=== PATIENT | female | born 1950 | race Caucasian/White ===

== ENCOUNTER → 2020-12-03 | Outpatient (CLI) | payer OTHER ==
--- NOTE | 2020-12-07 01:54 | ECWPNPC ---
PATIENT NAME: RAFAL MC : 1950 GENDER: FEMALE VISIT DATE: 12/03/2020 DISCHARGE DATE: 12/03/20 1357 VISIT LOCKED DATE TIME: PHYSICIAN: PASCUAL GARCIA RESOURCE: PASCUAL GARCIA REASON FOR APPOINTMENT 1. CERVICALGIA HISTORY OF PRESENT ILLNESS GENERAL: 70-YEAR-OLD FEMALE IN FOR INITIAL PAIN CONSULT REGARDING NECK PAIN. 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 AT THAT TIME SHE WAS AT A STOP SIGN AND WAS REAR-ENDED AND SINCE THEN SHE HAS EXPERIENCED NECK PAIN. PATIENT HAS TRIED INJECTIONS IN THE PAST TO NO AVAIL. SHE DOES ADMIT TO BEING ON TRAMADOL IN THE PAST AND STATES THAT IT MADE HER SLEEP TOO DEEPLY. SHE RATES HER PAIN CURRENTLY AT A 9 OUT OF 10 AND DESCRIBES IT A CONTINUOUS PRESSURE. FALL RISK SCREENING: SCREENING : ONE FALL IN THE LAST YEAR, PATIENT DENIES SEEKING MEDICAL INTERVENTION.. PAIN SCREENING: PATIENT HAS A COMPLAINT OF ACUTE OR CHRONIC PAIN :YES LOCATION OF PAIN: NECK, HEAD, LEFT EYE. INTENSITY OF PAIN (SCALE OF 1 TO 10):9 WHAT DOES YOUR PAIN FEEL LIKE:CONTINOUS PRESSURE AND FEELING LIKE PAIN IS RADIATING INTO HEAD. PATIENT RELATES FEELING LIKE TOP OF HEAD WANTS TO BLOW OFF. DURATION:CONTINOUS, CONSTANT, AWAKENS FROM SLEEP PAIN IS INCREASED BY:OTHERS "OVERTIRED." PAIN IS DECREASED BY:USE OF PAIN MEDICATIONS PLAN/GOALS/TREATMENT/INTERVENTION/FOLLOW UP:SEE PLAN NURSING NOTE: -. PAIN CENTER INTAKE QUESTIONS: DO YOU HAVE A HISTORY OF MRSA? :NO DO YOU TAKE A BLOOD THINNERS? :NO DO YOU HAVE ANY BLEEDING DISORDERS? :NO ANY NEW NUMBNESS OR WEAKNESS IN YOUR LEGS OR ARMS? :NO ANY PACEMAKER,DEFIBRILLATOR, OR DORSAL COLUMN STIMULATOR? :NO DO YOU HAVE ANY RASHES OR OPEN SORES? :NO ARE YOU ALLERGIC TO IV DYE? :NO ARE YOU DIABETIC? :YES ANY NEW PROBLEMS WITH YOUR MEDICATIONS? :NO HAVE YOU RECEIVED A VACCINE IN THE PAST 30 DAYS? :NO DO YOU PLAN TO RECEIVE A VACCINE IN THE NEXT 21 DAYS? :NO DO YOU NEED ANY PRESCRIPTION? :NO DO YOU TAKE ANY IMMUNOSUPPRESSIVE MEDICATIONS? :NO DO YOU HAVE ANY KIDNEY OR LIVER DISEASE? :NO IS THERE A CHANCE YOU COULD BE ? :NO ARE YOU BREAST FEEDING? :NO CURRENT MEDICATIONS TAKING LIDOCAINE 5 % OINTMENT 1 APPLICATION NEEDED EXTERNALLY THREE TIMES A DAY TAKING BENEFIBER - POWDER DIRECTED ORALLY TAKING LIDOCAINE 5 % CREAM DIRECTED EXTERNALLY TWICE DAILY NEEDED TAKING REFRESH 1.4-0.6 % SOLUTION DIRECTED OPHTHALMIC TAKING MAY USE OPTICALLY OPTIVE JOSE C-3 0.5-1.0.5% SOLUTION DORECTED TAKING JOSE C BASIC 1-2 DROPS IN EACH EYE NEEDED OPTHALMIC TAKING SUMATRIPTAN SUCCINATE 6 MG/0.5ML SOLUTION 0.5 ML MAY REPEAT DOSE AFTER 1 HOUR NEEDED SUBCUTANEOUS ONSET OF MIGRAINE, REPEAT 2 HOURS LATER TAKING MAXALT 10 MG TABLET 1 TABLET ORALLY ONCE A DAY PRN TAKING LYRICA 200 MG CAPSULE 1 CAP ORALLY THREE TIMES DAILY TAKING LOSARTAN POTASSIUM 50 MG TABLET ONE HALF TAB ORALLY ONCE A DAY TAKING ATORVASTATIN CALCIUM 10 MG TABLET 1 TABLET ORALLY ONCE A DAY TAKING CELEBREX 200 MG CAPSULE 1 CAPSULE WITH FOOD ORALLY ONCE A DAY TAKING CRANBERRY SUPER STRENGTH 6000-100-3 MG-MG-UNIT CAPSULE DIRECTED ORALLY TAKING SUCRALFATE 1 GM TABLET 1 TABLET ON AN EMPTY STOMACH ORALLY TWICE A DAY TAKING METFORMIN HCL 500 MG TABLET 1 TABLET WITH A MEAL ORALLY BID TAKING JANUVIA 100 MG TABLET 1 TABLET ORALLY ONCE A DAY TAKING GLIPIZIDE XL 5 MG TABLET EXTENDED RELEASE 24 HOUR 1 TABLET WITH FOOD ORALLY BID TAKING VITAMIN D3 COMPLETE - TABLET 1 TAB ORALLY 5000 UNITS TAKING HYDROXYCHLOROQUINE SULFATE 200 MG TABLET DIRECTED ORALLY BID TAKING SYNTHROID 50 MCG TABLET 1 TABLET IN THE MORNING ON AN EMPTY STOMACH ORALLY ONCE A DAY TAKING PROLIA 60MG/ML SUBCUTANEOUSLY EVERY 6 MONTHS TAKING OMEPRAZOLE 20 MG CAPSULE DELAYED RELEASE 1 CAP ORALLY BID TAKING PENTASA 500 MG CAPSULE EXTENDED RELEASE 2 CAPSULES ORALLY TID TAKING FERROUS GLUCONATE 324 (38 FE) MG TABLET 1 TABLET WITH WATER OR JUICE BETWEEN MEALS ORALLY ONCE A DAY TAKING DICLO GEL MEDICATION LIST REVIEWED AND RECONCILED WITH THE PATIENT PAST MEDICAL HISTORY TYPE 2 DIABETES CHROHNS HYPERTENSION HYPOTHYROIDISM GERD MIGRAINES HIGH CHOLESTEROL ALLERGIES HYALGAN: RASH, ABD PAIN, FATIGUE - ALLERGY DIAMOX SEQUELS: INCREASED BLOOD SUGARS - SIDE EFFECTS RESTASIS: EYES RED, SORE, COULDN'T SEE - SIDE EFFECTS DARVON: HYPER, TOUNGE BLACK - SIDE EFFECTS RECLAST: HIGH BLOOD PRESSURE, BLOOD SUGARS WAY UP, PACREATITIS - SIDE EFFECTS KEFLEX: SUGARS WAY DOWN - SIDE EFFECTS ZANAFLEX: DECREASED HEART RATE, LOW BP, SLURRED SPEECH, FATIGUE - SIDE EFFECTS VICTOZA: RASH, WELTS, NAUSEA - ALLERGY EFFNOX: SUGARS DOWN, - SIDE EFFECTS RELPAN: NAUSEA/VOMITING - ALLERGY DOXYCYCLINE: HYPOGLYCEMIA - ALLERGY PUNCTAL PLUGS : INFECTION - SIDE EFFECTS SURGICAL HISTORY FULL HYSTERECTOMY 1989 LASER RIGHT EYE SURGERY GALL BLADDER REMOVAL 1991 SEVERAL COLONOSCOPIES CYST REMOVED FROM OVARIES 2 LIVER BIOPSIES RIGHT CATARACT SURGERY 2006, 2008 ENDOSCOPY X 3 TRIGGER FINGER RIGHT BASAL THUMB JOINT ARHROPLASTY 07/03/2016 COLONOSCOPY BENJI 2014 SPINAL TUMOR REMOVED 10/09/2017 COLONOSCOPY & EGD [facility] 02/26/2018 SOCIAL HISTORY GENERAL: TOBACCO USE ARE YOU A:NONSMOKER LATEX QUESTIONNAIRE LATEX ALLERGY : HAVE YOU EVER DEVELOPED ANY TYPE OF REACTION AFTER HANDLING LATEX PRODUCTS SUCH RUBBER GLOVES, CONDOMS, DIAPHRAGMS, BALLOONS, SOCKS, OR UNDERWEAR?NO LATEX ALLERGY : HAVE YOU EVER DEVELOPED ANY TYPE OF REACTION DURING OR AFTER DENTAL APPOINTMENT, VAGINAL/RECTAL EXAMINATION, SURGICAL PROCEDURE, OR ANY OTHER EXPOSURE?NO LATEX RISK : HAVE YOU EVER HAD ANY DIFFICULTY BREATHING OR HIVES AFTER EATING OR HANDLING ANY FRUITS, OR VEGETABLES; SUCH KIWI, BANANAS, STONE FRUITS, OR CHESTNUTSNO LATEX RISK : DO YOU HAVE A PREVIOUS PERSONAL HISTORY OF MORE THAN NINE SURGERIES, SPINA BIFIDA, OR REPEATED CATHERIZATIONS? YES LATEX RISK : ARE YOU FREQUENTLY EXPOSED TO LATEX PRODUCTS IN YOUR OCCUPATION?NO DATE ASKED : 12/03/2020 ALCOHOL USE: TARANMOISÉS 12/03/2020 1:10:34 PM > , NO. RECREATIONAL DRUG USE DRUG USE?NO JEWISH [id number] PRESBYTERIAN NO HINDU BELIEFS THAT WOULD IMPACT HEALTH CARE. LEARNING BARRIERS / SPECIAL NEEDS BARRIERS TO LEARNING?NO HEARING IMPAIRED?YES :HEARING AIDES VISION IMPAIRED?YES :CORRECTIVE LENSES COGNITIVELY IMPAIRED?NO READINESS TO LEARN?YES LEARNING PREFERENCES?NO LEARNING CAPABILITIES PRESENT?YES EMOTIONAL BARRIERS?NO SPECIAL DEVICES?NO ELECTRIC ARC WELDER NEEDED?NO MARITAL STATUS: . HOSPITALIZATION/MAJOR DIAGNOSTIC PROCEDURE PNEUMONIA- 4 BROKEN RIBS RIGHT SIDE 05/2018 CHILDBIRTH BLOOD POISIONING SICK 10/2017 REVIEW OF SYSTEMS CONSTITUTIONAL: ANY RECENT FEVER NO . CHILLS NO . WEIGHT CHANGE OF UNKNOWN REASONS NO . GASTROENTEROLOGY: NEW UNEXPLAINABLE CHANGES IN BOWEL CONTROL NO . CONSTIPATION NO . GENITOURINARY: ANY NEW CHANGE IN BLADDER CONTROL? NO . NEUROLOGY: NEW ONSET DIZZINESS OR NEUROLOGICAL CHANGES NOT MENTIONED NO . NEW NUMBNESS OR PAIN PATTERNS NOT MENTIONED AND PERTINENT TO TODAY'S VISIT NO . CARDIOLOGY: NEW CHEST PRESSURE NO . PATIENT DENIES NO . RESPIRATORY: UNEXPLAINABLE COUGH NO . NEW SHORTNESS OF BREATH NO . VITAL SIGNS WT 135 LBS, HT 51 IN, BMI 36.49 INDEX, BP 159/74 MM HG, HR 65 /MIN, RR 18 /MIN, TEMP 97.6 F, OXYGEN SAT % 99%, SAFE IN ENV? (Y/N) YES, NA INITIALS SC 13:00, REVIEWED BY: Charli CHIRINOS BEST WORKER. EXAMINATION GENERAL EXAMINATION: GENERALNO ACUTE DISTRESS, WELL NOURISHED AND HYDRATED. PSYCHAPPROPRIATE MOOD AND AFFECT . LUNGS:CLEAR TO AUSCULTATION BILATERALLY, NO WHEEZES, RHONCHI, RALES. HEART:NO MURMURS, REGULAR RATE AND RHYTHM. ASSESSMENTS MYALGIA, OTHER SITE - M79.18 (PRIMARY) TREATMENT MYALGIA, OTHER SITE NOTES: 70-YEAR-OLD FEMALE IN FOR INITIAL PAIN CONSULT REGARDING A WORK RELATED INCIDENT. GIVEN PRESENTING SYMPTOMS AND RESULTS OF PHYSICAL EXAMINATION RECOMMENDED BILATERAL NECK TRIGGER POINT INJECTIONS WITH POSTPROCEDURAL FOLLOW-UP. PATIENT HAS EXPRESSED UNDERSTANDING OF AND WAS IN AGREEMENT WITH TREATMENT PLAN. GIVEN TIME TO ASK QUESTIONS AND EXPRESS CONCERNS. PROCEDURES PN WORKMANS' COMP OPINION IN YOUR OPINION, WAS THE INCIDENT THAT THE PATIENT DESCRIBED THE COMPETENT MEDICAL CAUSE OF THIS INJURY/ILLNESS? YES ARE THE PATIENT'S COMPLAINTS CONSISTENT WITH HIS/HER HISTORY OF THE INJURY/ILLNESS? YES IS THE PATIENT'S HISTORY OF THE INJURY/ILLNESS CONSISTENT WITH YOUR OBJECTIVE FINDING? YES WHAT IS THE PERCENTAGE OF TEMPORARY IMPAIRMENT? MODERATE TO MARKED = 66.7% IS THE PATIENT WORKING? YES DOCTOR ON SITE: ROXIE LEO MD PROCEDURE CODES FA211 ESTABILISHED PATIENT [facility] FAC[facility] CHARGE DISPOSITION & COMMUNICATION FOLLOW UP POSTPROCEDURE (REASON: TRIGGER POINT INJECTIONS BILATERAL NECK) ELECTRONICALLY SIGNED BY LEX DE LEÓN ON 12/06/2020 AT 08:32 AM EDT DISCLAIMER : THIS IS A VISIT SUMMARY EXTRACTED FROM THE [employer] CHART. IT IS NOT A COPY OF THE [employer] PROGRESS NOTE. ELIZABET
== END ==
LOC: M PAIN 13:00
PROVIDERS: ATTEND Family Medicine
DX: M79.18 Myalgia, other site (principal); E11.9 Type 2 diabetes mellitus without complications; K50.90 Crohn's disease, unspecified, without complications; I10 Essential (primary) hypertension; E03.9 Hypothyroidism, unspecified; K21.9 Gastro-esophageal reflux disease without esophagitis; G43.909 Migraine, unspecified, not intractable, without status migrainosus; E78.00 Pure hypercholesterolemia, unspecified; Z79.84 Long term (current) use of oral hypoglycemic drugs; Z79.899 Other long term (current) drug therapy; Z88.8 Allergy status to other drugs, medicaments and biological substances; Z88.1 Allergy status to other antibiotic agents

== ENCOUNTER → 2021-02-01 | Outpatient (CLI) | payer OTHER ==
[~2021-02-01] MED LIST: BUPIVACAINE HCL 0.25% 10ML VIAL As Ordered ONE; BUPIVACAINE HCL 0.25% 30ML VIAL As Ordered ONE; NORCO, ANEXSIA 5/325MG TABLET (HYDROcodone/ACETAMINOPHEN) As Ordered ONE; TRIAMCINOLONE ACETONIDE SUSP 40 MG/ML VIAL (J3301) As Ordered ONE; diazePAM 2 MG TAB As Ordered ONE
--- NOTE | 2021-02-04 01:21 | ECWPNPC ---
PATIENT NAME: RAFAL MC : 1950 GENDER: FEMALE VISIT DATE: 02/01/2021 DISCHARGE DATE: 02/01/21 161 VISIT LOCKED DATE TIME: PHYSICIAN: ROXIE NIXON MD RESOURCE: ROXIE NIXON MD REASON FOR APPOINTMENT 1. TRIGGER POINT INJECTIONS BILATERAL NECK HISTORY OF PRESENT ILLNESS GENERAL: -. FALL RISK SCREENING: SCREENING : ONE FALL IN THE LAST YEAR, PATIENT DENIES SEEKING MEDICAL INTERVENTION.. PAIN SCREENING: PATIENT HAS A COMPLAINT OF ACUTE OR CHRONIC PAIN :YES LOCATION OF PAIN:NECK, RIGHT SHOULDER INTENSITY OF PAIN (SCALE OF 1 TO 10):10 WHAT DOES YOUR PAIN FEEL LIKE:ACHING, SHOOTING, OTHER "RAWR, RAWR, ACHE IT JUST DONT STOP" DURATION:CONTINOUS, CONSTANT, AWAKENS FROM SLEEP PAIN IS INCREASED BY:ACTIVITIES PAIN IS DECREASED BY:USE OF PAIN MEDICATIONS PLAN/GOALS/TREATMENT/INTERVENTION/FOLLOW UP:SEE PLAN NURSING NOTE: -. PAIN CENTER INTAKE QUESTIONS: DO YOU HAVE A HISTORY OF MRSA? :NO DO YOU TAKE A BLOOD THINNERS? :NO DO YOU HAVE ANY BLEEDING DISORDERS? :NO ANY NEW NUMBNESS OR WEAKNESS IN YOUR LEGS OR ARMS? :YES CHRONIC RIGHT ARM WEAKNESS. ANY PACEMAKER,DEFIBRILLATOR, OR DORSAL COLUMN STIMULATOR? :NO DO YOU HAVE ANY RASHES OR OPEN SORES? :NO ARE YOU ALLERGIC TO IV DYE? :NO ARE YOU DIABETIC? :YES FSBS: 158 (THIS AM) ANY NEW PROBLEMS WITH YOUR MEDICATIONS? :NO HAVE YOU RECEIVED A VACCINE IN THE PAST 30 DAYS? :NO DO YOU PLAN TO RECEIVE A VACCINE IN THE NEXT 21 DAYS? :NO DO YOU TAKE ANY IMMUNOSUPPRESSIVE MEDICATIONS? :NO ANY HISTORY OF SEIZURES? :NO ANY HISTORY OF CARDIAC ISSUES OR EVENTS? :YES HEART MURMUR DO YOU HAVE ANY KIDNEY OR LIVER DISEASE? :NO DO YOU HAVE SLEEP APNEA? :NO ANY RECENT HEAD INJURY? :NO DO YOU HAVE ANY NEW INFECTIONS? :NO IS THERE A CHANCE YOU COULD BE ? :NO ARE YOU BREAST FEEDING? :NO WHEN DID YOU LAST EAT? : 02/01/21 0800 WHEN DID YOU LAST DRINK? : 02/01/21 1130 WHAT DID YOU LAST DRINK? : WATER NAME OF PERSON DRIVING YOU HOME? : SUHAS DO YOU HAVE ANY OTHER QUESTIONS OR CONCERNS? : NO CURRENT MEDICATIONS TAKING LIDOCAINE 5 % OINTMENT 1 APPLICATION NEEDED EXTERNALLY THREE TIMES A DAY, NOTES: NOT RECENTLY TAKING BENEFIBER - POWDER DIRECTED ORALLY TAKING LIDOCAINE 5 % CREAM DIRECTED EXTERNALLY TWICE DAILY NEEDED, NOTES: NOT RECENTLY TAKING REFRESH 1.4-0.6 % SOLUTION DIRECTED OPHTHALMIC TAKING MAY USE OPTICALLY OPTIVE JOSE C-3 0.5-1.0.5% SOLUTION DORECTED TAKING JOSE C BASIC 1-2 DROPS IN EACH EYE NEEDED OPTHALMIC TAKING SUMATRIPTAN SUCCINATE 6 MG/0.5ML SOLUTION 0.5 ML MAY REPEAT DOSE AFTER 1 HOUR NEEDED SUBCUTANEOUS ONSET OF MIGRAINE, REPEAT 2 HOURS LATER, NOTES: ISSUE WITH INSURANCE COMPANY TAKING MAXALT 10 MG TABLET 1 TABLET ORALLY ONCE A DAY PRN, NOTES: ISSUE WITH INSURANCE COMPANY TAKING LYRICA 200 MG CAPSULE 1 CAP ORALLY THREE TIMES DAILY, NOTES: 02/01/21 AM TAKING LOSARTAN POTASSIUM 50 MG TABLET ONE HALF TAB ORALLY ONCE A DAY, NOTES: 01/31 TAKING ATORVASTATIN CALCIUM 10 MG TABLET 1 TABLET ORALLY ONCE A DAY, NOTES: 01/31 TAKING CELEBREX 200 MG CAPSULE 1 CAPSULE WITH FOOD ORALLY ONCE A DAY, NOTES: 01/31 DINNER TAKING CRANBERRY SUPER STRENGTH 6000-100-3 MG-MG-UNIT CAPSULE DIRECTED ORALLY TAKING SUCRALFATE 1 GM TABLET 1 TABLET ON AN EMPTY STOMACH ORALLY TWICE A DAY TAKING METFORMIN HCL 500 MG TABLET 1 TABLET WITH A MEAL ORALLY BID, NOTES: 02/01/21 AM TAKING JANUVIA 100 MG TABLET 1 TABLET ORALLY ONCE A DAY, NOTES: 01/31 NOON TAKING GLIPIZIDE XL 5 MG TABLET EXTENDED RELEASE 24 HOUR 1 TABLET WITH FOOD ORALLY BID, NOTES: 02/01/21 AM TAKING VITAMIN D3 COMPLETE - TABLET 1 TAB ORALLY 5000 UNITS TAKING HYDROXYCHLOROQUINE SULFATE 200 MG TABLET DIRECTED ORALLY BID, NOTES: 01/31 TAKING SYNTHROID 50 MCG TABLET 1 TABLET IN THE MORNING ON AN EMPTY STOMACH ORALLY ONCE A DAY TAKING PROLIA 60MG/ML SUBCUTANEOUSLY EVERY 6 MONTHS, NOTES: 10/2020 TAKING OMEPRAZOLE 20 MG CAPSULE DELAYED RELEASE 1 CAP ORALLY BID TAKING PENTASA 500 MG CAPSULE EXTENDED RELEASE 2 CAPSULES ORALLY TID, NOTES: 02/01 AM TAKING FERROUS GLUCONATE 324 (38 FE) MG TABLET 1 TABLET WITH WATER OR JUICE BETWEEN MEALS ORALLY ONCE A DAY TAKING DICLO GEL , NOTES: 01/31 MEDICATION LIST REVIEWED AND RECONCILED WITH THE PATIENT PAST MEDICAL HISTORY TYPE 2 DIABETES CHROHNS HYPERTENSION HYPOTHYROIDISM GERD MIGRAINES HIGH CHOLESTEROL ALLERGIES HYALGAN: RASH, ABD PAIN, FATIGUE - ALLERGY DIAMOX SEQUELS: INCREASED BLOOD SUGARS - SIDE EFFECTS RESTASIS: EYES RED, SORE, COULDN'T SEE - SIDE EFFECTS DARVON: HYPER, TOUNGE BLACK - SIDE EFFECTS RECLAST: HIGH BLOOD PRESSURE, BLOOD SUGARS WAY UP, PACREATITIS - SIDE EFFECTS KEFLEX: SUGARS WAY DOWN - SIDE EFFECTS ZANAFLEX: DECREASED HEART RATE, LOW BP, SLURRED SPEECH, FATIGUE - SIDE EFFECTS VICTOZA: RASH, WELTS, NAUSEA - ALLERGY EFFNOX: SUGARS DOWN, - SIDE EFFECTS RELPAN: NAUSEA/VOMITING - ALLERGY DOXYCYCLINE: HYPOGLYCEMIA - ALLERGY PUNCTAL PLUGS : INFECTION - SIDE EFFECTS SOCIAL HISTORY GENERAL: TOBACCO USE ARE YOU A:NONSMOKER LATEX QUESTIONNAIRE LATEX ALLERGY : HAVE YOU EVER DEVELOPED ANY TYPE OF REACTION AFTER HANDLING LATEX PRODUCTS SUCH RUBBER GLOVES, CONDOMS, DIAPHRAGMS, BALLOONS, SOCKS, OR UNDERWEAR?NO LATEX ALLERGY : HAVE YOU EVER DEVELOPED ANY TYPE OF REACTION DURING OR AFTER DENTAL APPOINTMENT, VAGINAL/RECTAL EXAMINATION, SURGICAL PROCEDURE, OR ANY OTHER EXPOSURE?NO LATEX RISK : HAVE YOU EVER HAD ANY DIFFICULTY BREATHING OR HIVES AFTER EATING OR HANDLING ANY FRUITS, OR VEGETABLES; SUCH KIWI, BANANAS, STONE FRUITS, OR CHESTNUTSNO LATEX RISK : DO YOU HAVE A PREVIOUS PERSONAL HISTORY OF MORE THAN NINE SURGERIES, SPINA BIFIDA, OR REPEATED CATHERIZATIONS? YES - PLEASE INDICATE : > 9 SURGERIES LATEX RISK : ARE YOU FREQUENTLY EXPOSED TO LATEX PRODUCTS IN YOUR OCCUPATION?NO DATE ASKED : 02/01/2021 ALCOHOL USE: MOISÉS CHIRINOS 12/03/2020 1:10:34 PM > , NO. RECREATIONAL DRUG USE DRUG USE?NO CONFUCIANIST [id number] PRESBYTERIAN NO RESTORATIONISM BELIEFS THAT WOULD IMPACT HEALTH CARE. LEARNING BARRIERS / SPECIAL NEEDS BARRIERS TO LEARNING?NO HEARING IMPAIRED?YES VISION IMPAIRED?YES COGNITIVELY IMPAIRED?NO :HEARING AIDES :CORRECTIVE LENSES READINESS TO LEARN?YES LEARNING PREFERENCES?NO LEARNING CAPABILITIES PRESENT?YES EMOTIONAL BARRIERS?NO SPECIAL DEVICES?NO RN TRANSITIONAL CARE NEEDED?NO MARITAL STATUS: . VITAL SIGNS WT 135.2 LBS, HT 51 IN, BMI 36.54 INDEX, BP 181/86 MM HG, REPEAT BP 190/88 MM HG, HR 61 /MIN, RR 18 /MIN, TEMP 98.4 F, OXYGEN SAT % 100%, SAFE IN ENV? (Y/N) YES, NA INITIALS ID [id number], REVIEWED BY: AMPARO RN, BP SITTING 158/74RN IS GIONG TO RECHECK MANUAL. EXAMINATION GENERAL EXAMINATION: THE PATIENT IS ALERT, ORIENTED TIMES THREE AND COOPERATIVE. LUNGS ARE CLEAR TO AUSCULTATION. HEART SHOWS REGULAR RHYTHM, NO MURMURS AND NO GALLOPS. ASSESSMENTS MYALGIA - M79.10 (PRIMARY) TREATMENT MYALGIA MEDICATION: VALIUM TAB 2MG ORALLY (DIAZEPAM)URI FELICIANO 02/01/2021 2:52:05 PM > VERIFIED KEKE JONES 02/01/2021 2:55:35 PM > ADMINISTERED COMPLETION OF PROCEDURAL VISIT WHEN MEETS CRITERIA MED: PAIN NORCO TABLET 5MG/325MG ORALLY HYDROCODONE/ACETAMINOPHENURI FELICIANO 02/01/2021 2:52:17 PM > VERIFIED KEKE JONES 02/01/2021 2:56:03 PM > ADMINISTERED PROCEDURES PAIN NURSING RECORD PROCEDURE IN ROOM 1409, PHYSICIAN IN ROOM 1558, START 1601, FINISH 1604, PHYSICIAN OUT OF ROOM 1605, OUT OF ROOM 1614, ECG N/A, PATIENT SHIELDED N/A, SAFETY STRAP N/A, PREP ALCOHOL DR. NIXON, DRESSING TEGADERM Charli JONES RN LOC: 1. ALERT, ORIENTED RESP: 1. REGULAR, NO DYSPNEA COLOR: 1. PINK SKIN: 1. WARM, DRY POSITION: 5. SITTING VITALS: KEKE JONES 02/01/2021 4:10:20 PM > 160/90 HR 62 16 95% R/A COMPLETION OF PROCEDURE APPOINTMENT: POST PAIN 6, DRESSING SITE DRY AND INTACT, IV N/A, GAIT STEADY, TEACHING COMPLETED, PATIENT ACKNOWLEDGES UNDERSTANDING YES, PROCEDURE APPOINTMENT COMPLETED AT 1614 PN WORKMANS' COMP OPINION IN YOUR OPINION, WAS THE INCIDENT THAT THE PATIENT DESCRIBED THE COMPETENT MEDICAL CAUSE OF THIS INJURY/ILLNESS? YES ARE THE PATIENT'S COMPLAINTS CONSISTENT WITH HIS/HER HISTORY OF THE INJURY/ILLNESS? YES IS THE PATIENT'S HISTORY OF THE INJURY/ILLNESS CONSISTENT WITH YOUR OBJECTIVE FINDING? YES WHAT IS THE PERCENTAGE OF TEMPORARY IMPAIRMENT? MODERATE TO MARKED = 66.7% IS THE PATIENT WORKING? NO DOCTOR ON SITE: ROXIE LEO MD PN TRIGGER POINT INJECTION WITH STEROIDS PRE PROCEDURE DIAGNOSIS 1. MYALGIA 2. PAIN AT BILATERAL NECK AREA POST PROCEDURE DIAGNOSIS 1. MYALGIA 2. PAIN AT BILATERAL NECK AREA PROCEDURE TRIGGER POINT INJECTION AT BILATERAL NECK AREA SURGEON DR. ROXIE NIXON COURT ASSISTANT NONE ANESTHESIA LOCAL PRE PROCEDURE NOTE THE PATIENT HAS A HISTORY OF CHRONIC PAIN AT THE RIGHT AND LEFT NECK AREA. I EVALUATED THE PATIENT AND REVIEWED THE CHART. THERE IS EVIDENCE OF BANDS OF TISSUE WITH RESTRICTION OF MOVEMENT AND PRESENCE OF TRIGGER POINT AT THE RIGHT AND LEFT NECK AREA. I WENT OVER THE RISKS, ALTERNATIVES, AND BENEFITS ASSOCIATED WITH THIS PROCEDURE. THE PATIENT WOULD LIKE TO PROCEED AND GIVE CONSENT TO PERFORMED THE PROCEDURE. THE PATIENT DENIES UNEXPLAINABLE WEIGHT LOSS, FEVER, CHILLS, OR NEW CHANGES IN URINARY OR BOWEL CONTROL. THE PATIENT IS COVID-19 NEGATIVE DESCRIPTION OF PROCEDURE THE PATIENT WAS BROUGHT TO THE PROCEDURE ROOM AND PLACED IN THE SITTING POSITION. THE AREA WAS CLEANED WITH ALCOHOL. THE PROCEDURE WAS DONE USING ASEPTIC STERILE TECHNIQUE. A TIMEOUT WAS PERFORMED WHERE THE CONSENTED SITE WAS VERIFIED WITH EVERYONE IN THE ROOM. USING A 25-GAUGE NEEDLE, TRIGGER POINTS WERE INJECTED AT THE RIGHT AND LEFT NECK AREA WITH A TOTAL OF 40 ML OF BUPIVACAINE 0.25% AND KENALOG 40 MG. THE MEDICATIONS WERE VERIFIED WITH THE NURSE. THERE WAS NO EVIDENCE OF BLOOD OR PARESTHESIA DURING THE PROCEDURE. THE PATIENT WAS SENT TO THE RECOVERY ROOM. THE PATIENT WAS MOVING THE EXTREMITIES AND DOING WELL. THERE WERE NO COMPLICATIONS DURING THE PROCEDURE. ESTIMATED BLOOD LOSS WAS LESS THAN 5 ML POST PROCEDURE NOTE THE PATIENT IS HAVING PAIN DOWN THE ARM. DEPENDING ON THE RESULTS, CONSIDER A CERVICAL MRI. THE PATIENT MAY BE A CANDIDATE FOR A CERVICAL EPIDURAL. THE PROCEDURE DONE WAS DISCUSSED WITH THE PATIENT. THE PATIENT WILL BE SEEN IN A FOLLOW UP IN THE NEXT FEW WEEKS. I AM LOOKING FOR LONG LASTING PAIN RELIEF FOR THE PATIENT WITH THIS INTERVENTION. INSTRUCTIONS WERE GIVEN, QUESTIONS WERE ANSWERED, AND THE PATIENT EXPRESSED UNDERSTANDING AND AGREES WITH THE PLAN. I, ROBEL DELAROSA, DOCUMENTED THE ABOVE INFORMATION ACTING A SCRIBE FOR DR. NIXON. I HAVE REVIEWED THE ABOVE DOCUMENT, WRITTEN BY ROBEL DELAROSA, DOORS PREFITTER, AND I VERIFY THAT IT IS ACCURATE PROCEDURE CODES 53952 INJECT TRIGGER POINT, 1 OR 2 DISPOSITION & COMMUNICATION FOLLOW UP FOLLOW UP WITH LABORER PRESTRESSED CONCRETE (REASON: POST TRIGGER POINT INJECTIONS BILATERAL NECK) ELECTRONICALLY SIGNED BY ROXIE NIXON MD, MD ON 02/03/2021 AT 05:23 PM EDT DISCLAIMER : THIS IS A VISIT SUMMARY EXTRACTED FROM THE [employer] CHART. IT IS NOT A COPY OF THE [employer] PROGRESS NOTE. ELIZABET
== END ==
LOC: M PAIN 14:00
PROVIDERS: ATTEND Anesthesiology
DX: M79.18 Myalgia, other site (principal); E11.9 Type 2 diabetes mellitus without complications; K50.90 Crohn's disease, unspecified, without complications; I10 Essential (primary) hypertension; E03.9 Hypothyroidism, unspecified; K21.9 Gastro-esophageal reflux disease without esophagitis; G43.909 Migraine, unspecified, not intractable, without status migrainosus; E78.00 Pure hypercholesterolemia, unspecified; Z79.84 Long term (current) use of oral hypoglycemic drugs; Z79.899 Other long term (current) drug therapy; Z88.1 Allergy status to other antibiotic agents; Z88.8 Allergy status to other drugs, medicaments and biological substances
CPT/HCPCS: 20552; J3301

== ENCOUNTER → 2021-02-15 | Outpatient (CLI) | payer OTHER ==
--- NOTE | 2021-02-17 03:28 | ECWPNPC ---
PATIENT NAME: RAFAL MC : 1950 GENDER: FEMALE VISIT DATE: 02/15/2021 DISCHARGE DATE: 02/15/21 1356 VISIT LOCKED DATE TIME: PHYSICIAN: PASCUAL GARCIA RESOURCE: PASCUAL GARCIA REASON FOR APPOINTMENT 1. POST TRIGGER POINT INJECTIONS BILATERAL NECK HISTORY OF PRESENT ILLNESS DEPRESSION SCREENING: PHQ-2 (2015 EDITION) LITTLE INTEREST OR PLEASURE IN DOING THINGS?NOT AT ALL FEELING DOWN, DEPRESSED, OR HOPELESS?NOT AT ALL TOTAL SCORE0 GENERAL: HPI 70-YEAR-OLD FEMALE IN FOR POST TRIPLE INJECTION FOLLOW-UP. PATIENT FEELS THE PROCEDURE WAS SUCCESSFUL OVERALL RATING HER PAIN PREPROCEDURE AT A 10 OUT OF 10 AND POSTPROCEDURE AT A 5 OUT OF 10. SHE FURTHER STATES PROCEDURE CONTINUES TO HELP HER TODAY.. -. FALL RISK SCREENING: SCREENING YES FELL OFF A STOOL IN THE KITCHEN ..DID NOT GO TO URGENT CARE. PAIN SCREENING: PATIENT HAS A COMPLAINT OF ACUTE OR CHRONIC PAIN :NO NURSING NOTE: -. PAIN CENTER INTAKE QUESTIONS: DO YOU HAVE A HISTORY OF MRSA? :NO DO YOU TAKE A BLOOD THINNERS? :NO DO YOU HAVE ANY BLEEDING DISORDERS? :NO ANY NEW NUMBNESS OR WEAKNESS IN YOUR LEGS OR ARMS? :NO ANY PACEMAKER,DEFIBRILLATOR, OR DORSAL COLUMN STIMULATOR? :NO DO YOU HAVE ANY RASHES OR OPEN SORES? :NO ARE YOU ALLERGIC TO IV DYE? :NO ARE YOU DIABETIC? :NO ANY NEW PROBLEMS WITH YOUR MEDICATIONS? :NO HAVE YOU RECEIVED A VACCINE IN THE PAST 30 DAYS? :NO DO YOU PLAN TO RECEIVE A VACCINE IN THE NEXT 21 DAYS? :NO DO YOU TAKE ANY IMMUNOSUPPRESSIVE MEDICATIONS? :NO ANY HISTORY OF SEIZURES? :NO ANY HISTORY OF CARDIAC ISSUES OR EVENTS? :NO DO YOU HAVE ANY KIDNEY OR LIVER DISEASE? :NO DO YOU HAVE SLEEP APNEA? :NO ANY RECENT HEAD INJURY? :NO DO YOU HAVE ANY NEW INFECTIONS? :NO IS THERE A CHANCE YOU COULD BE ? :NO ARE YOU BREAST FEEDING? :NO DO YOU HAVE ANY OTHER QUESTIONS OR CONCERNS? : - CURRENT MEDICATIONS TAKING LIDOCAINE 5 % OINTMENT 1 APPLICATION NEEDED EXTERNALLY THREE TIMES A DAY, NOTES: NOT RECENTLY TAKING BENEFIBER - POWDER DIRECTED ORALLY TAKING LIDOCAINE 5 % CREAM DIRECTED EXTERNALLY TWICE DAILY NEEDED, NOTES: NOT RECENTLY TAKING REFRESH 1.4-0.6 % SOLUTION DIRECTED OPHTHALMIC TAKING MAY USE OPTICALLY OPTIVE JOSE C-3 0.5-1.0.5% SOLUTION DORECTED TAKING JOSE C BASIC 1-2 DROPS IN EACH EYE NEEDED OPTHALMIC TAKING SUMATRIPTAN SUCCINATE 6 MG/0.5ML SOLUTION 0.5 ML MAY REPEAT DOSE AFTER 1 HOUR NEEDED SUBCUTANEOUS ONSET OF MIGRAINE, REPEAT 2 HOURS LATER, NOTES: ISSUE WITH INSURANCE COMPANY TAKING MAXALT 10 MG TABLET 1 TABLET ORALLY ONCE A DAY PRN, NOTES: ISSUE WITH INSURANCE COMPANY TAKING LYRICA 200 MG CAPSULE 1 CAP ORALLY THREE TIMES DAILY, NOTES: 02/01/21 AM TAKING LOSARTAN POTASSIUM 50 MG TABLET ONE HALF TAB ORALLY ONCE A DAY, NOTES: 01/31 TAKING ATORVASTATIN CALCIUM 10 MG TABLET 1 TABLET ORALLY ONCE A DAY, NOTES: 01/31 TAKING CELEBREX 200 MG CAPSULE 1 CAPSULE WITH FOOD ORALLY ONCE A DAY, NOTES: 01/31 DINNER TAKING CRANBERRY SUPER STRENGTH 6000-100-3 MG-MG-UNIT CAPSULE DIRECTED ORALLY TAKING SUCRALFATE 1 GM TABLET 1 TABLET ON AN EMPTY STOMACH ORALLY TWICE A DAY TAKING METFORMIN HCL 500 MG TABLET 1 TABLET WITH A MEAL ORALLY BID TAKING JANUVIA 100 MG TABLET 1 TABLET ORALLY ONCE A DAY TAKING GLIPIZIDE XL 5 MG TABLET EXTENDED RELEASE 24 HOUR 1 TABLET WITH FOOD ORALLY BID TAKING VITAMIN D3 COMPLETE - TABLET 1 TAB ORALLY 5000 UNITS TAKING HYDROXYCHLOROQUINE SULFATE 200 MG TABLET DIRECTED ORALLY BID TAKING SYNTHROID 50 MCG TABLET 1 TABLET IN THE MORNING ON AN EMPTY STOMACH ORALLY ONCE A DAY TAKING PROLIA 60MG/ML SUBCUTANEOUSLY EVERY 6 MONTHS TAKING OMEPRAZOLE 20 MG CAPSULE DELAYED RELEASE 1 CAP ORALLY BID TAKING PENTASA 500 MG CAPSULE EXTENDED RELEASE 2 CAPSULES ORALLY TID TAKING FERROUS GLUCONATE 324 (38 FE) MG TABLET 1 TABLET WITH WATER OR JUICE BETWEEN MEALS ORALLY ONCE A DAY TAKING DICLO GEL MEDICATION LIST REVIEWED AND RECONCILED WITH THE PATIENT PAST MEDICAL HISTORY TYPE 2 DIABETES CHROHNS HYPERTENSION HYPOTHYROIDISM GERD MIGRAINES HIGH CHOLESTEROL ALLERGIES HYALGAN: RASH, ABD PAIN, FATIGUE - ALLERGY DIAMOX SEQUELS: INCREASED BLOOD SUGARS - SIDE EFFECTS RESTASIS: EYES RED, SORE, COULDN'T SEE - SIDE EFFECTS DARVON: HYPER, TOUNGE BLACK - SIDE EFFECTS RECLAST: HIGH BLOOD PRESSURE, BLOOD SUGARS WAY UP, PACREATITIS - SIDE EFFECTS KEFLEX: SUGARS WAY DOWN - SIDE EFFECTS ZANAFLEX: DECREASED HEART RATE, LOW BP, SLURRED SPEECH, FATIGUE - SIDE EFFECTS VICTOZA: RASH, WELTS, NAUSEA - ALLERGY EFFNOX: SUGARS DOWN, - SIDE EFFECTS RELPAN: NAUSEA/VOMITING - ALLERGY DOXYCYCLINE: HYPOGLYCEMIA - ALLERGY PUNCTAL PLUGS : INFECTION - SIDE EFFECTS REVIEW OF SYSTEMS CONSTITUTIONAL: ANY RECENT FEVER NO . CHILLS NO . WEIGHT CHANGE OF UNKNOWN REASONS NO . GASTROENTEROLOGY: NEW UNEXPLAINABLE CHANGES IN BOWEL CONTROL NO . CONSTIPATION NO . GENITOURINARY: ANY NEW CHANGE IN BLADDER CONTROL? NO . NEUROLOGY: NEW ONSET DIZZINESS OR NEUROLOGICAL CHANGES NOT MENTIONED NO . NEW NUMBNESS OR PAIN PATTERNS NOT MENTIONED AND PERTINENT TO TODAY'S VISIT NO . CARDIOLOGY: NEW CHEST PRESSURE NO . PATIENT DENIES NO . RESPIRATORY: UNEXPLAINABLE COUGH NO . NEW SHORTNESS OF BREATH NO . VITAL SIGNS WT 132.6 LBS, HT 51 IN, BMI 35.84 INDEX, BP 156/71 MM HG, HR 63 /MIN, RR 18 /MIN, TEMP 97.4 F, OXYGEN SAT % 99%, NA INITIALS SC 13:34, REVIEWED BY: KG. EXAMINATION GENERAL EXAMINATION: GENERALNO ACUTE DISTRESS, WELL NOURISHED AND HYDRATED. PSYCHAPPROPRIATE MOOD AND AFFECT . LUNGS:CLEAR TO AUSCULTATION BILATERALLY, NO WHEEZES, RHONCHI, RALES. HEART:NO MURMURS, REGULAR RATE AND RHYTHM. ASSESSMENTS OTHER CHRONIC PAIN - G89.29 MYALGIA, OTHER SITE - M79.18 TREATMENT OTHER CHRONIC PAIN PAIN PROCEDURE LOGDATE OF PROCEDURE02/01/21PROCEDURE:BILATERAL NECK TRIGGER POINT INJECTIONSAMOUNT OF PRE SEDATEVALIUM 2MG NORCO 5/325MGRESULT:PRE 10/10 POST 5/10 CONTINUES TO HELP TODAY NOTES: 70-YEAR-OLD FEMALE IN FOR POST TRIGGER POINT URGENT FOLLOW-UP. GIVEN PRESENTING SYMPTOMS RECOMMEND FOLLOW-UP IN 2 MONTHS. PATIENT HAS EXPRESSED UNDERSTANDING OF AND WAS IN AGREEMENT WITH TREATMENT PLAN. GIVEN TIME TO ASK QUESTIONS AND EXPRESS CONCERNS. DISPOSITION & COMMUNICATION FOLLOW UP 2 MONTHS (REASON: MYALGIA ) ELECTRONICALLY SIGNED BY LEX DE LEÓN ON 02/16/2021 AT 08:43 AM EDT DISCLAIMER : THIS IS A VISIT SUMMARY EXTRACTED FROM THE [employer] CHART. IT IS NOT A COPY OF THE [employer] PROGRESS NOTE. MTDD
== END ==
LOC: M PAIN 13:45
PROVIDERS: ATTEND Family Medicine
DX: G89.29 Other chronic pain (principal); M79.18 Myalgia, other site; E11.9 Type 2 diabetes mellitus without complications; K50.90 Crohn's disease, unspecified, without complications; I10 Essential (primary) hypertension; E03.9 Hypothyroidism, unspecified; K21.9 Gastro-esophageal reflux disease without esophagitis; G43.909 Migraine, unspecified, not intractable, without status migrainosus; E78.00 Pure hypercholesterolemia, unspecified; Z88.8 Allergy status to other drugs, medicaments and biological substances; Z88.1 Allergy status to other antibiotic agents; Z79.84 Long term (current) use of oral hypoglycemic drugs; Z79.899 Other long term (current) drug therapy

== ENCOUNTER → 2021-06-08 | Outpatient (CLI) | payer OTHER | LOC: M PAIN 13:45 | PROVIDERS: ATTEND Anesthesiology | DX: M47.816 Spondylosis without myelopathy or radiculopathy, lumbar region (principal); M79.18 Myalgia, other site; E11.9 Type 2 diabetes mellitus without complications; I10 Essential (primary) hypertension; K50.90 Crohn's disease, unspecified, without complications; E03.9 Hypothyroidism, unspecified; K21.9 Gastro-esophageal reflux disease without esophagitis; G43.909 Migraine, unspecified, not intractable, without status migrainosus; E78.00 Pure hypercholesterolemia, unspecified; Z79.899 Other long term (current) drug therapy; Z88.1 Allergy status to other antibiotic agents; Z88.8 Allergy status to other drugs, medicaments and biological substances ==

== ENCOUNTER → 2021-08-29 | Outpatient (CLI) | payer OTHER ==
[~2021-08-29] MED LIST changes: -NORCO, ANEXSIA 5/325MG TABLET (HYDROcodone/ACETAMINOPHEN) As Ordered ONE; -diazePAM 2 MG TAB As Ordered ONE
== END ==
LOC: M PAIN 14:00
PROVIDERS: ATTEND Anesthesiology
DX: M79.18 Myalgia, other site (principal); E11.9 Type 2 diabetes mellitus without complications; K50.90 Crohn's disease, unspecified, without complications; I10 Essential (primary) hypertension; E03.9 Hypothyroidism, unspecified; K21.9 Gastro-esophageal reflux disease without esophagitis; G43.909 Migraine, unspecified, not intractable, without status migrainosus; E78.00 Pure hypercholesterolemia, unspecified; M51.24 Other intervertebral disc displacement, thoracic region; M50.221 Other cervical disc displacement at C4-C5 level; M50.222 Other cervical disc displacement at C5-C6 level; Z79.84 Long term (current) use of oral hypoglycemic drugs; Z79.899 Other long term (current) drug therapy; Z88.1 Allergy status to other antibiotic agents; Z88.8 Allergy status to other drugs, medicaments and biological substances
CPT/HCPCS: 20552; J3301

== ENCOUNTER → 2021-10-28 | Outpatient (CLI) | payer OTHER | LOC: M PAIN 14:00 | PROVIDERS: ATTEND Nurse Practitioner Family | DX: M50.11 Cervical disc disorder with radiculopathy, high cervical region (principal); M50.121 Cervical disc disorder at C4-C5 level with radiculopathy; E11.9 Type 2 diabetes mellitus without complications; I10 Essential (primary) hypertension; K50.90 Crohn's disease, unspecified, without complications; E03.9 Hypothyroidism, unspecified; K21.9 Gastro-esophageal reflux disease without esophagitis; G43.909 Migraine, unspecified, not intractable, without status migrainosus; E78.00 Pure hypercholesterolemia, unspecified; M25.511 Pain in right shoulder; M25.512 Pain in left shoulder; M51.24 Other intervertebral disc displacement, thoracic region; M50.122 Cervical disc disorder at C5-C6 level with radiculopathy; Z79.84 Long term (current) use of oral hypoglycemic drugs; Z79.899 Other long term (current) drug therapy; Z88.1 Allergy status to other antibiotic agents; Z88.8 Allergy status to other drugs, medicaments and biological substances; Z91.048 Other nonmedicinal substance allergy status ==

== ENCOUNTER → 2022-04-13 | Outpatient (CLI) | payer OTHER | LOC: M PAIN 15:00 | PROVIDERS: ATTEND Anesthesiology | DX: M54.2 Cervicalgia (principal); M79.10 Myalgia, unspecified site; M79.18 Myalgia, other site; E11.9 Type 2 diabetes mellitus without complications; K50.90 Crohn's disease, unspecified, without complications; I10 Essential (primary) hypertension; E03.9 Hypothyroidism, unspecified; K21.9 Gastro-esophageal reflux disease without esophagitis; G43.909 Migraine, unspecified, not intractable, without status migrainosus; E78.00 Pure hypercholesterolemia, unspecified; R00.2 Palpitations; Z79.84 Long term (current) use of oral hypoglycemic drugs; Z79.899 Other long term (current) drug therapy; Z88.1 Allergy status to other antibiotic agents; Z88.8 Allergy status to other drugs, medicaments and biological substances ==

== ENCOUNTER → 2022-07-18 | Outpatient (CLI) | payer OTHER ==
[~2022-07-18] MED LIST changes: +NORCO, ANEXSIA 5/325MG TABLET (HYDROcodone/ACETAMINOPHEN) As Ordered ONE; +diazePAM 2 MG TAB As Ordered ONE
== END ==
LOC: M PAIN 15:00
PROVIDERS: ATTEND Anesthesiology
DX: M79.18 Myalgia, other site (principal); E11.9 Type 2 diabetes mellitus without complications; K50.90 Crohn's disease, unspecified, without complications; I10 Essential (primary) hypertension; E03.9 Hypothyroidism, unspecified; K21.9 Gastro-esophageal reflux disease without esophagitis; G43.909 Migraine, unspecified, not intractable, without status migrainosus; E78.00 Pure hypercholesterolemia, unspecified; M50.221 Other cervical disc displacement at C4-C5 level; M50.223 Other cervical disc displacement at C6-C7 level; M25.511 Pain in right shoulder; M25.512 Pain in left shoulder; M51.24 Other intervertebral disc displacement, thoracic region; R01.1 Cardiac murmur, unspecified; Z79.84 Long term (current) use of oral hypoglycemic drugs; Z79.890 Hormone replacement therapy; Z79.899 Other long term (current) drug therapy; Z88.1 Allergy status to other antibiotic agents; Z88.8 Allergy status to other drugs, medicaments and biological substances; Z91.048 Other nonmedicinal substance allergy status
CPT/HCPCS: 20552; J3301

== ENCOUNTER → 2022-09-26 | Outpatient (CLI) | payer OTHER | LOC: M PAIN 14:00 | PROVIDERS: ATTEND Nurse Practitioner Family | DX: M79.12 Myalgia of auxiliary muscles, head and neck (principal); E11.9 Type 2 diabetes mellitus without complications; K50.90 Crohn's disease, unspecified, without complications; I10 Essential (primary) hypertension; E03.9 Hypothyroidism, unspecified; K21.9 Gastro-esophageal reflux disease without esophagitis; G43.909 Migraine, unspecified, not intractable, without status migrainosus; E78.00 Pure hypercholesterolemia, unspecified; M50.221 Other cervical disc displacement at C4-C5 level; M50.223 Other cervical disc displacement at C6-C7 level; M51.24 Other intervertebral disc displacement, thoracic region; R01.1 Cardiac murmur, unspecified; Z79.84 Long term (current) use of oral hypoglycemic drugs; Z79.899 Other long term (current) drug therapy; Z88.1 Allergy status to other antibiotic agents; Z88.8 Allergy status to other drugs, medicaments and biological substances; Z91.09 Other allergy status, other than to drugs and biological substances ==

== ENCOUNTER → 2022-11-02 | Outpatient (CLI) | payer OTHER | LOC: M PAIN 14:15 | PROVIDERS: ATTEND Nurse Practitioner Family | DX: M79.10 Myalgia, unspecified site (principal); G89.29 Other chronic pain; E11.9 Type 2 diabetes mellitus without complications; I10 Essential (primary) hypertension; E03.9 Hypothyroidism, unspecified; K21.9 Gastro-esophageal reflux disease without esophagitis; G43.909 Migraine, unspecified, not intractable, without status migrainosus; Z88.1 Allergy status to other antibiotic agents; Z88.8 Allergy status to other drugs, medicaments and biological substances; Z79.84 Long term (current) use of oral hypoglycemic drugs; Z79.890 Hormone replacement therapy; Z79.899 Other long term (current) drug therapy ==

== ENCOUNTER → 2023-04-18 | Outpatient (REF) | payer OTHER, MEDICARE, BC | LOC: M LAB REF 17:46 | PROVIDERS: ATTEND Surgery | DX: D17.1 Benign lipomatous neoplasm of skin and subcutaneous tissue of trunk (principal) ==

== ENCOUNTER → 2023-08-08 | Outpatient (CLI) | payer OTHER, BC | LOC: M PAIN 13:30 | PROVIDERS: ATTEND Anesthesiology | DX: M79.10 Myalgia, unspecified site (principal); G89.29 Other chronic pain; M54.2 Cervicalgia; M47.812 Spondylosis without myelopathy or radiculopathy, cervical region; E11.9 Type 2 diabetes mellitus without complications; K50.90 Crohn's disease, unspecified, without complications; I10 Essential (primary) hypertension; E03.9 Hypothyroidism, unspecified; K21.9 Gastro-esophageal reflux disease without esophagitis; G43.909 Migraine, unspecified, not intractable, without status migrainosus; E78.00 Pure hypercholesterolemia, unspecified; M25.511 Pain in right shoulder; M25.512 Pain in left shoulder; Z79.84 Long term (current) use of oral hypoglycemic drugs; Z79.890 Hormone replacement therapy; Z79.899 Other long term (current) drug therapy; Z88.1 Allergy status to other antibiotic agents; Z88.8 Allergy status to other drugs, medicaments and biological substances ==

== ENCOUNTER → 2023-10-18 | Outpatient (CLI) | payer OTHER, BC ==
[~2023-10-18] MED LIST changes: -BUPIVACAINE HCL 0.25% 10ML VIAL As Ordered ONE; -BUPIVACAINE HCL 0.25% 30ML VIAL As Ordered ONE; -NORCO, ANEXSIA 5/325MG TABLET (HYDROcodone/ACETAMINOPHEN) As Ordered ONE; -TRIAMCINOLONE ACETONIDE SUSP 40 MG/ML VIAL (J3301) As Ordered ONE; +TRIAMCINOLONE ACETONIDE SUSP 40MG/ML 1ML VIAL As Ordered ONE; -diazePAM 2 MG TAB As Ordered ONE
== END ==
LOC: M PAIN 12:45
PROVIDERS: ATTEND Anesthesiology
DX: M79.12 Myalgia of auxiliary muscles, head and neck (principal); E11.9 Type 2 diabetes mellitus without complications; G89.29 Other chronic pain; I10 Essential (primary) hypertension; E03.9 Hypothyroidism, unspecified; K50.90 Crohn's disease, unspecified, without complications; K21.9 Gastro-esophageal reflux disease without esophagitis; Z79.890 Hormone replacement therapy; Z79.84 Long term (current) use of oral hypoglycemic drugs; Z79.899 Other long term (current) drug therapy; Z88.1 Allergy status to other antibiotic agents; Z88.8 Allergy status to other drugs, medicaments and biological substances
CPT/HCPCS: 20552; J0665; J3301

== ENCOUNTER → 2023-11-12 | Outpatient (CLI) | payer OTHER, BC | LOC: M PAIN 14:00 | PROVIDERS: ATTEND Nurse Practitioner Family | DX: M79.12 Myalgia of auxiliary muscles, head and neck (principal); M79.18 Myalgia, other site; E11.9 Type 2 diabetes mellitus without complications; K50.90 Crohn's disease, unspecified, without complications; I10 Essential (primary) hypertension; E03.9 Hypothyroidism, unspecified; K21.9 Gastro-esophageal reflux disease without esophagitis; G43.909 Migraine, unspecified, not intractable, without status migrainosus; E78.00 Pure hypercholesterolemia, unspecified; M54.2 Cervicalgia; M25.511 Pain in right shoulder; M25.512 Pain in left shoulder; Z79.84 Long term (current) use of oral hypoglycemic drugs; Z79.899 Other long term (current) drug therapy; Z79.890 Hormone replacement therapy; Z88.1 Allergy status to other antibiotic agents; Z88.8 Allergy status to other drugs, medicaments and biological substances ==

== ENCOUNTER → 2024-02-07 | Outpatient (CLI) | payer OTHER, BC | LOC: M PAIN 14:00 | PROVIDERS: ATTEND Nurse Practitioner Family | DX: M79.12 Myalgia of auxiliary muscles, head and neck (principal); G89.29 Other chronic pain; E11.9 Type 2 diabetes mellitus without complications; K50.90 Crohn's disease, unspecified, without complications; I10 Essential (primary) hypertension; E03.9 Hypothyroidism, unspecified; K21.9 Gastro-esophageal reflux disease without esophagitis; E78.00 Pure hypercholesterolemia, unspecified; Z79.84 Long term (current) use of oral hypoglycemic drugs; Z79.890 Hormone replacement therapy; Z79.899 Other long term (current) drug therapy; Z88.1 Allergy status to other antibiotic agents; Z88.8 Allergy status to other drugs, medicaments and biological substances ==

== ENCOUNTER → 2024-04-03 | Outpatient (CLI) | payer OTHER | LOC: M PAIN 15:00 | PROVIDERS: ATTEND Anesthesiology | DX: M79.12 Myalgia of auxiliary muscles, head and neck (principal); G89.29 Other chronic pain; E11.9 Type 2 diabetes mellitus without complications; K50.90 Crohn's disease, unspecified, without complications; I10 Essential (primary) hypertension; E03.9 Hypothyroidism, unspecified; K21.9 Gastro-esophageal reflux disease without esophagitis; G43.909 Migraine, unspecified, not intractable, without status migrainosus; E78.00 Pure hypercholesterolemia, unspecified; M50.221 Other cervical disc displacement at C4-C5 level; M50.222 Other cervical disc displacement at C5-C6 level; M50.223 Other cervical disc displacement at C6-C7 level; M25.511 Pain in right shoulder; M25.512 Pain in left shoulder; Z79.84 Long term (current) use of oral hypoglycemic drugs; Z79.899 Other long term (current) drug therapy; Z88.1 Allergy status to other antibiotic agents; Z88.8 Allergy status to other drugs, medicaments and biological substances ==

== ENCOUNTER → 2024-05-05 | Outpatient (CLI) | payer OTHER | LOC: M PAIN 14:30 | PROVIDERS: ATTEND Nurse Practitioner Family | DX: M79.12 Myalgia of auxiliary muscles, head and neck (principal); G89.29 Other chronic pain; E11.9 Type 2 diabetes mellitus without complications; K50.90 Crohn's disease, unspecified, without complications; I10 Essential (primary) hypertension; E03.9 Hypothyroidism, unspecified; K21.9 Gastro-esophageal reflux disease without esophagitis; G43.909 Migraine, unspecified, not intractable, without status migrainosus; E78.00 Pure hypercholesterolemia, unspecified; M25.511 Pain in right shoulder; M25.512 Pain in left shoulder; M50.221 Other cervical disc displacement at C4-C5 level; M50.223 Other cervical disc displacement at C6-C7 level; Z79.84 Long term (current) use of oral hypoglycemic drugs; Z79.899 Other long term (current) drug therapy; Z79.890 Hormone replacement therapy; Z88.1 Allergy status to other antibiotic agents; Z88.8 Allergy status to other drugs, medicaments and biological substances; Z91.048 Other nonmedicinal substance allergy status ==

== ENCOUNTER → 2024-08-25 | Outpatient (CLI) | payer OTHER | LOC: M PAIN 15:30 | PROVIDERS: ATTEND Nurse Practitioner Family | DX: M79.10 Myalgia, unspecified site (principal); G89.29 Other chronic pain; Z79.84 Long term (current) use of oral hypoglycemic drugs; Z79.899 Other long term (current) drug therapy; Z88.1 Allergy status to other antibiotic agents; Z88.8 Allergy status to other drugs, medicaments and biological substances; Z91.048 Other nonmedicinal substance allergy status ==

== ENCOUNTER → 2024-10-17 | Outpatient (CLI) | payer OTHER | LOC: M PAIN 14:30 | PROVIDERS: ATTEND Anesthesiology | DX: M79.18 Myalgia, other site (principal); G89.29 Other chronic pain; E11.9 Type 2 diabetes mellitus without complications; I10 Essential (primary) hypertension; E03.9 Hypothyroidism, unspecified; K21.9 Gastro-esophageal reflux disease without esophagitis; E78.00 Pure hypercholesterolemia, unspecified; Z79.84 Long term (current) use of oral hypoglycemic drugs; Z79.899 Other long term (current) drug therapy; Z88.1 Allergy status to other antibiotic agents; Z88.8 Allergy status to other drugs, medicaments and biological substances | CPT/HCPCS: 20552; J0665 ==